=== PATIENT | male | born 1980 | race Caucasian/White ===

== ENCOUNTER → 2016-09-22 | Day surgery (SDC) | payer OTHER ==
[~2016-09-22] VITALS: Ht 165.1 cm; Wt 124.5 kg
[2016-09-22 09:05] LABS: HCT 44.1 % (42.0-52.0); HGB 15.3 g/dl (13.2-18.0); MCH 28.8 pg (25.0-31.0); MCHC 34.7 g/dL (32.0-36.0); MCV 83.1 fL (78.0-100.0); MPV 9.7 fL (6.0-9.5); RBC 5.31 M/uL (4.70-6.00); RDW 13.4 % (11.5-14.0); WBC 7.1 K/uL (4.0-10.5)
== END | disposition home or self-care (01) ==
LOC: FAS 08:29
PROVIDERS: Legal Medicine
DX: S83.211A Bucket-handle tear of medial meniscus, current injury, right knee, initial encounter (principal); S83.511A Sprain of anterior cruciate ligament of right knee, initial encounter; V80.018A Animal-rider injured by fall from or being thrown from other animal in noncollision accident, initial encounter; E66.9 Obesity, unspecified; Z68.42 Body mass index [BMI] 45.0-49.9, adult; Z88.0 Allergy status to penicillin
CPT/HCPCS: 36415; 93005; J1100; J1170; J1885; J2405; J2704; J2795; J3010